=== PATIENT | male | born 1995 | race African-American/Black ===

== ENCOUNTER 2016-11-22 12:18 | Emergency (ER) | payer MEDICARE, OTHER ==
[~2016-11-22 12:18] MED LIST: ALBUTEROL INHALER INH; ALBUTEROL17 GM INH; AUGMENTIN875 MG PO; CLARITIN10 M1 PO; CLINDAMYCIN HCL1 GM PO; COLACE PO; DILAUDID PO; DROXIA200 MG PO; FLEXERIL10 MG PO; FOLIC ACID PO; FOLIC ACID1 MG; FOLIC ACID1 MG PO; HYDROXUREA; HYDROXYUREA500 M1 PO; HYDROXYZINE HCL10 MG; IBUPROFEN800 MG PO; LISINOPRIL10 MG PO; MEDROL DOSEPAK4 MG DOB; MORPHINE SULFAT15 M3 PO; MORPHINE SULFAT15 MG PO; MOTRIN400 MG PO; MOTRIN600 MG PO; MULTI VITAMIN1 EACH PO; NEO/POLYMYXIN/H10 M1 AU; NON-ASPIRIN325 MG PO; PANTOPRAZOLE SO20 MG PO; PEPCID AC20 M2 PO; PERCOCET; PERCOCET 10/31 UDTA1 PO; PERCOCET 10/3251 TAB PO; PERCOCET 10MG PO; PERCOCET 5-3251 TAB PO; PERCOCET 7.5-31 EACH PO; PERCOCET 7.5/321 TAB PO; PERCOCET10 PO; PERCOCET5/325 PO; PERCOCET7.5 PO; PRILOSEC20 MG PO; PRINIVIL20 M1 PO; PROTONIX20 MG PO; TAMIFLU75 M1 DOB; TYLENOL #3 PO; ZITHROMAX PO; ZOFRAN PO
[2016-11-22 12:43] LABS: URINE SOURCE CLEAN CATCH
[2016-11-22 12:49] LABS: URINE APPEARANCE CLEAR; URINE BILIRUBIN NEG (NEG); URINE BLOOD NEG (NEG); URINE COLOR YELLOW; URINE GLUCOSE NEG (NEG); URINE KETONE NEG (NEG); URINE LEUKOCYTE ESTERASE NEG (NEG); URINE NITRATE NEG (NEG); URINE PH 6.5 (5-8); URINE PROTEIN NEG (NEG); URINE SPECIFIC GRAVITY 1.012 (1.003-1.035); URINE UROBILINOGEN 0.2 MG/DL (NEG)
[2016-11-22 12:52] LABS: CULTURE INDICATED? NO
[2016-11-22 12:59] LABS: AMPHETAMINE NEG (NEG); BARBITURATES NEG (NEG); BENZODIAZEPINES POS (NEG); COCAINE NEG (NEG); MARIJUANA POS (NEG); OPIATES NEG (NEG); TRICYCLIC ANTIDEPRESSANTS NEG (NEG); U METHADONE NEG (NEG)
== END 2016-11-22 13:35 | disposition home or self-care (01) ==
LOC: CED 12:18
PROVIDERS: Physician Assistant Medical
DX: D57.1 Sickle-cell disease without crisis (principal); G89.29 Other chronic pain; J45.909 Unspecified asthma, uncomplicated; Z98.890 Other specified postprocedural states; Z88.5 Allergy status to narcotic agent
CPT/HCPCS: 36415; 80307; 81003; 96361; 96374; 99284; J1885

== ENCOUNTER 2017-02-07 05:23 | Emergency (ER) | payer OTHER ==
[2017-02-07 06:17] LABS: BASOPHIL% 0.8 % (0-2.5); EOSINOPHIL# 0.1 X10e3 (0-0.7); EOSINOPHIL% 1.9 % (0.0-7.0); HEMATOCRIT 29.6 % (38.0-50.0); HEMOGLOBIN 9.3 gm/dL (13.0-16.0); LYMPHOCYTE# 2.6 X10e3 (1.0-3.5); LYMPHOCYTE% 41.9 % (17.0-45.0); MEAN CELL VOLUME 65.2 FL (83-96); MEAN CORPUSCULAR HEMOGLOBIN 20.4 PG (28-34); MEAN CORPUSCULAR HGB CONC 31.3 g/dL (30-36); MEAN PLATELET VOLUME 8.6 FL (6.5-11.5); MONOCYTE# 0.3 X10e3 (0-1.0); MONOCYTE% 5.2 % (3.0-12.0); NEUTROPHIL# 3.1 X10e3 (1.5-7.1); NEUTROPHIL% 50.2 % (40-75); PLATELET COUNT 165 X10e3 (140-420); RED BLOOD COUNT 4.54 X10e (3.90-5.60); RED CELL DISTRIBUTION WIDTH 20.9 % (11.0-15.5); RETICULOCYTE 1.6 % (0.5-2.8); WHITE BLOOD COUNT 6.2 X10e3 (4.0-10.5)
[2017-02-07 06:46] LABS: ALBUMIN SERUM 4.3 g/dL (3.5-5.0); BILIRUBIN, DIRECT 0.1 mg/dL (0.0-0.2); BILIRUBIN,INDIRECT 0.6 mg/dL (0.0-0.9); BILIRUBIN,TOTAL 0.7 mg/dL (0.2-2.0); BUN/CREATININE RATIO 8.88; CALCIUM SERUM 9.3 mg/dL (8.4-10.2); CREATININE SERUM 0.9 mg/dL (0.6-1.4); DIFF IND NO; POTASSIUM 3.6 mmol/L (3.5-5.1); PROTEIN TOTAL SERUM 6.7 g/dL (6.0-8.3)
== END 2017-02-07 07:45 | disposition home or self-care (01) ==
LOC: CED 05:23
PROVIDERS: Physician Assistant
DX: D57.00 Hb-SS disease with crisis, unspecified (principal); Z88.6 Allergy status to analgesic agent; Z88.5 Allergy status to narcotic agent; Z79.899 Other long term (current) drug therapy
CPT/HCPCS: 36415; 80048; 80076; 85025; 85044; 96374; 96375; 96376; 99284; J1170; J1200; J2405

== ENCOUNTER 2017-02-19 06:29 | Emergency (ER) | payer OTHER | END 2017-02-19 12:20 | disposition home or self-care (01) | LOC: CED 06:29 | DX: D57.00 Hb-SS disease with crisis, unspecified (principal); G40.909 Epilepsy, unspecified, not intractable, without status epilepticus; I10 Essential (primary) hypertension; J45.909 Unspecified asthma, uncomplicated; Z88.5 Allergy status to narcotic agent | CPT/HCPCS: 36415; 96361; 96372; 96374; 96375; 96376; 99284; J1170; J1200 ==

== ENCOUNTER 2017-03-28 00:51 | Emergency (ER) | payer OTHER | END 2017-03-28 02:00 | disposition left against medical advice (07) | LOC: CED 00:51 | DX: Z53.21 Procedure and treatment not carried out due to patient leaving prior to being seen by health care provider (principal) ==

== ENCOUNTER 2017-04-01 01:25 | Emergency (ER) | payer OTHER ==
[~2017-04-01] VITALS: Ht 175.3 cm; Wt 70.3 kg
[2017-04-01 03:14] LABS: BASOPHIL# 0.1 X10e3 (0-0.3); BASOPHIL% 0.9 % (0-2.5); DIFF IND NO; EOSINOPHIL# 0.2 X10e3 (0-0.7); EOSINOPHIL% 2.5 % (0.0-7.0); HEMATOCRIT 27.7 % (38.0-50.0); LYMPHOCYTE# 1.4 X10e3 (1.0-3.5); LYMPHOCYTE% 20.6 % (17.0-45.0); MEAN CORPUSCULAR HEMOGLOBIN 22.1 PG (28-34); MEAN CORPUSCULAR HGB CONC 32.4 g/dL (30-36); MEAN PLATELET VOLUME 8.3 FL (6.5-11.5); MONOCYTE# 0.3 X10e3 (0-1.0); MONOCYTE% 4.5 % (3.0-12.0); NEUTROPHIL% 71.5 % (40-75); PLATELET COUNT 236 X10e3 (140-420); RED BLOOD COUNT 4.07 X10e (3.90-5.60); RED CELL DISTRIBUTION WIDTH 19.4 % (11.0-15.5); WHITE BLOOD COUNT 6.9 X10e3 (4.0-10.5)
[2017-04-01 03:39] LABS: BUN/CREATININE RATIO 6.66; CALCIUM SERUM 9.4 mg/dL (8.4-10.2); CREATININE SERUM 0.9 mg/dL (0.6-1.4)
== END 2017-04-01 04:28 | disposition home or self-care (01) ==
LOC: CED 01:25
PROVIDERS: Emergency Medicine
DX: D57.1 Sickle-cell disease without crisis (principal); J45.909 Unspecified asthma, uncomplicated
CPT/HCPCS: 36415; 80048; 85025; 85044; 96361; 96374; 96375; 96376; 99284; J1170; J1200; J1642; J1885; J2405

== ENCOUNTER 2017-04-05 03:10 | Emergency (ER) | payer OTHER ==
--- NOTE | ~2017-04-05 | CR63 ---
[facility] A Service of [facility] & [facility] RADIOLOGY TEXT RESULTS PATIENT: ROXANNE DONALD LOCATION: [facility] : [birth year] UNIT #: [id number] AGE: [address]: Phil Espino MD SEX: M ORDER DR: [id number] [facility] [address] [place], [place] [address] [id number] E MR#: [id number] Acc #: [id number] NAME: ROXANNE DONALD. : 1995 SEX: M STUDY DATE/TIME: 04/05/2017 4:20 UNIT: [facility] ROOM: STUDY DESCRIPTION: CR Chest 2 View Attending Physician: Phil Espino M.D. Ordering Physician: Phil Espino M.D. Primary Care Physician: Madonna Cabezas M.D. MEDICAL IMAGING REPORT This report is preliminary unless electronic signature is present EXAM PA lateral chest DATE: 04/05/2017 HISTORY Sickle cell crisis with chest pain and shortness of breath for 2 days. COMPARISON AP portable chest 09/09/2016. FINDINGS Heart size within normal limits. Pulmonary vascular distribution normal. Right chest wall Port A catheter extends to the right atrial level. Clear lungs. No acute osseous abnormality. IMPRESSION No acute chest finding. No significant change from 09/09/2016. Dictated by... Evette Cardenas M.D. THIS IS AN ELECTRONICALLY VERIFIED REPORT Evette Cardenas M.D. at 04/05/2017 9:56 PM [facility]/verenice TD: 04/05/2017 07:32 JOB #: [id number] MEDICAL IMAGING REPORT Page 1 of 1 COPY
== END 2017-04-05 05:18 | disposition home or self-care (01) ==
LOC: CED 03:10
DX: R07.81 Pleurodynia (principal); J45.909 Unspecified asthma, uncomplicated; Z88.5 Allergy status to narcotic agent
CPT/HCPCS: 71020; 96372; 99284; J1885

== ENCOUNTER 2017-04-23 11:56 | Emergency (ER) | payer OTHER ==
[~2017-04-23] VITALS: Ht 175.3 cm; Wt 70.3 kg
[2017-04-23 13:23] LABS: BASOPHIL# 0.1 X10e3 (0-0.3); EOSINOPHIL# 0.1 X10e3 (0-0.7); EOSINOPHIL% 1.1 % (0.0-7.0); HEMATOCRIT 26.8 % (38.0-50.0); HEMOGLOBIN 8.6 gm/dL (13.0-16.0); LYMPHOCYTE# 1.5 X10e3 (1.0-3.5); LYMPHOCYTE% 24.9 % (17.0-45.0); MEAN CELL VOLUME 67.1 FL (83-96); MEAN CORPUSCULAR HEMOGLOBIN 21.4 PG (28-34); MEAN CORPUSCULAR HGB CONC 31.9 g/dL (30-36); MEAN PLATELET VOLUME 8.1 FL (6.5-11.5); MONOCYTE# 0.4 X10e3 (0-1.0); MONOCYTE% 6.3 % (3.0-12.0); NEUTROPHIL# 4.1 X10e3 (1.5-7.1); NEUTROPHIL% 66.7 % (40-75); PLATELET COUNT 193 X10e3 (140-420); RED BLOOD COUNT 3.99 X10e (3.90-5.60); RED CELL DISTRIBUTION WIDTH 19.1 % (11.0-15.5); WHITE BLOOD COUNT 6.1 X10e3 (4.0-10.5)
[2017-04-23 13:47] LABS: DIFF IND NO
[2017-04-23 13:48] LABS: CALCIUM SERUM 8.9 mg/dL (8.4-10.2); CREATININE SERUM 0.9 mg/dL (0.6-1.4); POTASSIUM 3.6 mmol/L (3.5-5.1)
== END 2017-04-23 14:45 | disposition home or self-care (01) ==
LOC: CED 11:56
PROVIDERS: Emergency Medicine
DX: M79.651 Pain in right thigh (principal); M79.652 Pain in left thigh; Z88.5 Allergy status to narcotic agent
CPT/HCPCS: 36415; 80048; 85025; 85044; 96360; 99284; J1642; J1885